=== PATIENT | female | born 1950 | race Caucasian/White ===

== ENCOUNTER 2024-05-10 20:25 | Inpatient (IN) | payer OTHER ==
[2024-05-10 21:07] LABS: HEMATOCRIT 39.4 % (32.4-45.2); HEMOGLOBIN 13.1 G/dL (10.7-15.3); MCHC 33.2 g/dl (32.0-36.0); MEAN CELL VOLUME 93.3 fl (80-96); MEAN PLT VOLUME 8.8 fl (7.5-11.1); PLATELET COUNT 180.2 10^3/uL (134-434); RBC 4.22 10^6/uL (3.60-5.2); RDW 14.2 % (11.6-15.6); WHITE BLOOD COUNT 9.6 10^3/uL (4.0-10.8)
[2024-05-10 21:18] LABS: ALBUMIN 3.9 g/dl (3.4-5.0); BILIRUBIN,TOTAL 1.3 mg/dl (0.2-1); CALCIUM 9.4 mg/dl (8.5-10.1); CREATININE 1.3 mg/dl (0.6-1.3); MAGNESIUM 1.6 mg/dL (1.8-2.4); PHOSPHOROUS 3.6 (2.5-4.9); POTASSIUM 4.7 mmol/L (3.5-5.1); TOT PROT 5.7 g/dl (6.4-8.2)
[2024-05-10 21:18] LABS: INR 1.08 (0.83-1.09); PROTHROMBIN TIME (PATIENT) 12.3 SEC (9.7-13.0)
[2024-05-10 21:21] LABS: ACTIVATED PTT 31.8 SECONDS (25.2-36.5)
[2024-05-10 21:31] LABS: VENOUS BASE EXCESS -1.6 mmol/L (-2-2); VENOUS O2 SATURATION 44.8 % (70-80); VENOUS PCO2 43.2 mmHg (38-52); VENOUS PH 7.361 (7.310-7.410)
[2024-05-10 21:58] LABS: LACTIC ACID 2.1 mmol/L (0.4-2.0)
[2024-05-10] MEDS ORDERED: ENOXAPARIN NA (PORCINE) 60 MG/0.6 ML DISP.SYRIN SQ ONE (22:46)
[2024-05-10] MEDS ORDERED: ACETAMINOPHEN INJECTION 100 ML ONE (22:46)
[2024-05-10] MEDS ORDERED: ASPIRIN 81 MG CHEWABLE TABLETS ONE (22:46)
[2024-05-10] MEDS ORDERED: dilTIAZem HCL 30 MG TABLET ONE (22:48)
[2024-05-10 22:50] LABS: HIV INTERPRETATION NEGATIVE (NEGATIVE)
[2024-05-10] MEDS: ACETAMINOPHEN 1000 MG/100 ML BAG IVPB ONE (22:54)
[2024-05-10] MEDS: ENOXAPARIN NA (PORCINE) 60 MG/0.6 ML DISP.SYRIN SQ STA (22:54)
[2024-05-10] MEDS: ASPIRIN 81 MG CHEWABLE TABLETS PO ONE (22:54)
[2024-05-10] MEDS: morphine CARPU-JECT 2 MG/1 ML DISP.SYRIN IVPUSH ONE (22:55)
[2024-05-10] MEDS: dilTIAZem HCL 30 MG TABLET PO ONE (22:56)
[2024-05-10] MEDS: dilTIAZem HCL 60 MG TABLET PO ONE (22:56)
[2024-05-11] MEDS ORDERED: AZITHROMYCIN 500 MG VIAL IVPB ONE (00:27)
[2024-05-11] MEDS: AZITHROMYCIN IVPB 500 MG in DEXTROSE 5%-WATER - 250 ML IVPB ONE (00:32)
[2024-05-11] MEDS ORDERED: cefTRIAXone SODIUM 1 GM VIAL ONE ×2 (00:36→00:39)
[2024-05-11] MEDS: MAGNESIUM CL 64 MG TABLET.SA PO STA (00:57)
[2024-05-11] MEDS: CEFTRIAXONE 1,000 MG in DEXTROSE 5%-WATER - 50 ML IVPB ONE (01:01)
[2024-05-11 01:20] LABS: LACTIC ACID 2.8 mmol/L (0.4-2.0)
[2024-05-11] MEDS: SODIUM CHLORIDE 500 ML IV STA (03:48)
[2024-05-11 05:42] LABS: POTASSIUM 4.7 mmol/L (3.5-5.1)
[2024-05-11 05:43] LABS: CALCIUM 8.1 mg/dL (8.5-10.1)
[2024-05-11 05:44] LABS: BLOOD UREA NITROGEN 22.3 mg/dL (7-18); MAGNESIUM 1.5 mg/dL (1.8-2.4)
[2024-05-11 05:47] LABS: BASO % 0.2 % (0-2.0); CREATININE 1.1 mg/dL (0.55-1.3); HEMATOCRIT 34.2 % (32.4-45.2); HEMOGLOBIN 11.1 GM/dL (10.7-15.3); LYMPH % 14.4 % (8-40); MCH 30.9 pg (25.7-33.7); MCHC 32.5 g/dl (32.0-36.0); MEAN PLT VOLUME 7.6 fl (7.5-11.1); MONO % 5.3 % (3.8-10.2); NEUT % 80.1 % (42.8-82.8); PHOSPHOROUS 3.8 mg/dL (2.5-4.9); PLATELET COUNT 138 10^3/uL (134-434); RDW 14.4 % (11.6-15.6)
[2024-05-11] MEDS: ENOXAPARIN NA (PORCINE) 60 MG/0.6 ML DISP.SYRIN SQ SCH ×2 (07:59→09:41)
[2024-05-11] MEDS: DOXYCYCLINE INJECTION 100 MG in DEXTROSE 5%-WATER 100 ML IVPB SCH (09:41)
[2024-05-11] MEDS: MAGNESIUM 2GM/50ML STERILE WATER IVPB IVPB ONE (09:42)
[2024-05-11 11:37] LABS: BILIRUBIN,DIRECT 0.8 mg/dL (0.0-0.2)
[2024-05-11] MEDS: ACETAMINOPHEN 325 MG TABLET (FP) PO PRN (14:04)
[2024-05-11] MEDS: DOCUSATE SODIUM 100 MG CAPSULE (FP) PO SCH (21:05)
[2024-05-11] MEDS: ATORVASTATIN CA 10 MG TABLET (FP) PO SCH (21:06)
[2024-05-11] MEDS ORDERED: AZITHROMYCIN IVPB 500 MG in DEXTROSE 5%-WATER - 250 ML IVPB SCH (22:00)
[2024-05-11] MEDS ORDERED: dilTIAZem HCL 125 MG/25 ML - 25 ML VIAL ONE (22:59)
[2024-05-11] MEDS: CEFTRIAXONE 1 G/50 ML PREMIX 50 ML IVPB SCH (23:05)
[2024-05-11] MEDS: dilTIAZem HCL 50 MG/10 ML - 10 ML VIAL IVPUSH PRN (23:06)
[2024-05-12] MEDS: dilTIAZem HCL 50 MG/10 ML - 10 ML VIAL IVPUSH ONE (01:50)
[2024-05-12] MEDS ORDERED: dilTIAZem HCL 25 MG/5 ML - 5 ML VIAL ONE (02:57)
[2024-05-12] MEDS ORDERED: AMIODARONE IN DEXTROSE,ISO-OSM 150 MG/100 ML BAG ONE (04:51)
[2024-05-12] MEDS: AMIODARONE IN DEXTROSE,ISO-OSM 150 MG/100 ML BAG IVPB ONE (04:55)
[2024-05-12] MEDS: AMIODARONE IN DEXTROSE,ISO-OSM 360 MG/200 ML BAG IV SCH ×2 (05:13→10:40)
[2024-05-12 07:06] LABS: HEMATOCRIT 33.5 % (32.4-45.2); HEMOGLOBIN 11.1 GM/dL (10.7-15.3); MCH 31.2 pg (25.7-33.7); MCHC 33.2 g/dl (32.0-36.0); MEAN PLT VOLUME 8.1 fl (7.5-11.1); PLATELET COUNT 145 10^3/uL (134-434); RBC 3.57 M/mm3 (3.60-5.2); RDW 14.4 % (11.6-15.6); WHITE BLOOD COUNT 8.3 K/mm3 (4.0-10.0)
[2024-05-12 07:16] LABS: POTASSIUM 4.1 mmol/L (3.5-5.1)
[2024-05-12 07:21] LABS: CALCIUM 8.5 mg/dL (8.5-10.1)
[2024-05-12 07:22] LABS: ALBUMIN 2.3 g/dl (3.4-5.0); BLOOD UREA NITROGEN 17.7 mg/dL (7-18); MAGNESIUM 1.9 mg/dL (1.8-2.4)
[2024-05-12 07:25] LABS: CREATININE 0.7 mg/dL (0.55-1.3); PHOSPHOROUS 1.5 mg/dL (2.5-4.9)
[2024-05-12 07:26] LABS: BILIRUBIN,TOTAL 0.5 mg/dL (0.2-1); TOT PROT 4.7 g/dl (6.4-8.2)
[2024-05-12] MEDS ORDERED: ENOXAPARIN NA (PORCINE) 40 MG/0.4 ML DISP.SYRIN SQ SCH (10:00)
[2024-05-12] MEDS: APIXABAN 5 MG TABLET PO SCH (10:40)
[2024-05-12] MEDS: SODIUM CHLORIDE IVPB ONE (12:14)
[2024-05-12] MEDS: SODIUM PHOSPHATE IVPB ONE (12:14)
[2024-05-13 07:41] LABS: BASO % 0.1 % (0-2.0); EOS % 0.2 % (0-4.5); HEMATOCRIT 32.2 % (32.4-45.2); HEMOGLOBIN 10.9 GM/dL (10.7-15.3); LYMPH % 10.5 % (8-40); MCH 31.5 pg (25.7-33.7); MEAN CELL VOLUME 92.9 fl (80-96); MEAN PLT VOLUME 8.1 fl (7.5-11.1); MONO % 5.9 % (3.8-10.2); NEUT % 83.3 % (42.8-82.8); PLATELET COUNT 157 10^3/uL (134-434); RBC 3.47 M/mm3 (3.60-5.2); RDW 14.6 % (11.6-15.6); WHITE BLOOD COUNT 7.7 K/mm3 (4.0-10.0)
[2024-05-13 07:44] LABS: POTASSIUM 3.9 mmol/L (3.5-5.1)
[2024-05-13 07:48] LABS: ALBUMIN 2.2 g/dl (3.4-5.0); BLOOD UREA NITROGEN 11.8 mg/dL (7-18); MAGNESIUM 1.7 mg/dL (1.8-2.4)
[2024-05-13 07:51] LABS: CALCIUM 8.4 mg/dL (8.5-10.1); CREATININE 0.6 mg/dL (0.55-1.3); PHOSPHOROUS 2.3 mg/dL (2.5-4.9)
[2024-05-13 07:53] LABS: BILIRUBIN,TOTAL 0.4 mg/dL (0.2-1); TOT PROT 4.7 g/dl (6.4-8.2)
[2024-05-13] MEDS: METOPROLOL TARTRATE 5 MG/5 ML VIAL IVPUSH PRN (08:15)
[2024-05-13] MEDS: MAGNESIUM 2GM/50ML STERILE WATER IVPB IVPB ONE (09:00)
[2024-05-13] MEDS: NAPH,MB-DB/K PH,MBDB POWDER PACKET PO SCH (09:00)
[2024-05-13] MEDS: AMIODARONE IN DEXTROSE,ISO-OSM 360 MG/200 ML BAG IV SCH (09:05)
[2024-05-13] MEDS: POTASSIUM PHOSPHATE 30 MM in SODIUM CHLORIDE 500 ML IVPB ONE (12:03)
[2024-05-14 07:03] LABS: HEMATOCRIT 36.1 % (32.4-45.2); HEMOGLOBIN 11.8 GM/dL (10.7-15.3); MCH 30.9 pg (25.7-33.7); MCHC 32.7 g/dl (32.0-36.0); MEAN CELL VOLUME 94.4 fl (80-96); MEAN PLT VOLUME 8.6 fl (7.5-11.1); PLATELET COUNT 191 10^3/uL (134-434); RBC 3.82 M/mm3 (3.60-5.2); RDW 14.4 % (11.6-15.6)
[2024-05-14 07:15] LABS: POTASSIUM 4.5 mmol/L (3.5-5.1)
[2024-05-14 07:18] LABS: ALBUMIN 2.5 g/dl (3.4-5.0); CALCIUM 8.9 mg/dL (8.5-10.1)
[2024-05-14 07:19] LABS: BLOOD UREA NITROGEN 8.3 mg/dL (7-18); MAGNESIUM 1.9 mg/dL (1.8-2.4)
[2024-05-14 07:23] LABS: BILIRUBIN,TOTAL 0.3 mg/dL (0.2-1)
[2024-05-14 07:25] LABS: CREATININE 0.6 mg/dL (0.55-1.3); PHOSPHOROUS 2.6 mg/dL (2.5-4.9)
[2024-05-14 09:35] LABS: ANISOCYTOSIS 1+; MACROCYTOSIS 1+
[2024-05-14] MEDS: AMIODARONE HCL 200 MG TABLET PO SCH (14:42)
[2024-05-14] MEDS: metoPROLOL SUCCINATE 25 MG TAB.SR.24H (FP) PO SCH (16:25)
[2024-05-15 07:33] LABS: HEMATOCRIT 34.8 % (32.4-45.2); HEMOGLOBIN 12.2 GM/dL (10.7-15.3); MCH 32.2 pg (25.7-33.7); MEAN CELL VOLUME 91.9 fl (80-96); MEAN PLT VOLUME 7.8 fl (7.5-11.1); PLATELET COUNT 224 10^3/uL (134-434); RBC 3.79 M/mm3 (3.60-5.2); RDW 14.1 % (11.6-15.6); WHITE BLOOD COUNT 5.1 K/mm3 (4.0-10.0)
[2024-05-15] MEDS ORDERED: metoPROLOL SUCCINATE 25 MG TAB.SR.24H (FP) PO SCH (07:45)
[2024-05-15 07:55] LABS: POTASSIUM 4.1 mmol/L (3.5-5.1)
[2024-05-15 08:04] LABS: BLOOD UREA NITROGEN 8.2 mg/dL (7-18); CALCIUM 8.6 mg/dL (8.5-10.1)
[2024-05-15 08:05] LABS: ALBUMIN 2.4 g/dl (3.4-5.0); MAGNESIUM 1.6 mg/dL (1.8-2.4)
[2024-05-15 08:08] LABS: CREATININE 0.6 mg/dL (0.55-1.3); PHOSPHOROUS 2.8 mg/dL (2.5-4.9)
[2024-05-15 08:09] LABS: BILIRUBIN,TOTAL 0.6 mg/dL (0.2-1); TOT PROT 5.2 g/dl (6.4-8.2)
[2024-05-15] MEDS: metoPROLOL SUCCINATE 25 MG TAB.SR.24H (FP) PO SCH (09:23)
[2024-05-15] MEDS: MAGNESIUM 1GM/D5W - 1 GM/100 ML IVPB IVPB ONE (21:35)
[2024-05-16 08:15] LABS: POTASSIUM 5.2 mmol/L (3.5-5.1)
[2024-05-16 08:18] LABS: HEMATOCRIT 35.9 % (32.4-45.2); HEMOGLOBIN 12.2 GM/dL (10.7-15.3); MCH 31.3 pg (25.7-33.7); MEAN CELL VOLUME 92.2 fl (80-96); MEAN PLT VOLUME 7.6 fl (7.5-11.1); PLATELET COUNT 285 10^3/uL (134-434); RDW 14.3 % (11.6-15.6); WHITE BLOOD COUNT 4.8 K/mm3 (4.0-10.0)
[2024-05-16 08:20] LABS: ALBUMIN 2.4 g/dl (3.4-5.0); BLOOD UREA NITROGEN 8.6 mg/dL (7-18); CALCIUM 9.1 mg/dL (8.5-10.1); MAGNESIUM 1.9 mg/dL (1.8-2.4)
[2024-05-16 08:23] LABS: CREATININE 0.6 mg/dL (0.55-1.3); PHOSPHOROUS 3.3 mg/dL (2.5-4.9)
[2024-05-16 08:24] LABS: BILIRUBIN,TOTAL 0.4 mg/dL (0.2-1)
[2024-05-16 08:25] LABS: TOT PROT 5.2 g/dl (6.4-8.2)
[2024-05-16] MEDS ORDERED: metoPROLOL SUCCINATE 25 MG TAB.SR.24H (FP) PO SCH (08:59)
[2024-05-16] MEDS: metoPROLOL SUCCINATE 25 MG TAB.SR.24H (FP) PO ONE (09:41)
[2024-05-16] MEDS: SODIUM ZIRCONIUM CYCLOSILICATE (LOKELMA) 5 GM PACKET PO ONE (13:48)
[2024-05-16] MEDS: metoPROLOL SUCCINATE 25 MG TAB.SR.24H (FP) PO SCH (22:06)
[2024-05-17 06:56] LABS: POTASSIUM 4.6 mmol/L (3.5-5.1)
[2024-05-17 07:04] LABS: BLOOD UREA NITROGEN 11.6 mg/dL (7-18); CALCIUM 9.3 mg/dL (8.5-10.1)
[2024-05-17 07:05] LABS: ALBUMIN 2.7 g/dl (3.4-5.0); MAGNESIUM 1.8 mg/dL (1.8-2.4)
[2024-05-17 07:07] LABS: BILIRUBIN,DIRECT 0.2 mg/dL (0.0-0.2); CREATININE 0.7 mg/dL (0.55-1.3); PHOSPHOROUS 3.4 mg/dL (2.5-4.9)
[2024-05-17 07:09] LABS: BILIRUBIN,TOTAL 0.4 mg/dL (0.2-1); TOT PROT 5.6 g/dl (6.4-8.2)
[2024-05-17 18:19] VITALS: BP 141/75; PULSE 69; RESP 19; TEMP 97.8
== END 2024-05-17 19:37 | disposition home or self-care (01) | DRG 871 ==
LOC: FER 20:25 → J2W 05-11 03:00
PROVIDERS: ADMIT Internal Medicine; ATTEND Internal Medicine
DX: A41.9 Sepsis, unspecified organism (principal); I21.A1 Myocardial infarction type 2; J11.00 Influenza due to unidentified influenza virus with unspecified type of pneumonia; R04.2 Hemoptysis; J90 Pleural effusion, not elsewhere classified; E78.5 Hyperlipidemia, unspecified; E83.42 Hypomagnesemia; I48.0 Paroxysmal atrial fibrillation
CPT/HCPCS: 0241U-QW; 36415; 71045-TC-FY; 71046-TC-FY; 71250-TC; 80048; 80053; 80076; 81003; 81015; 82248; 82550; 82803; 82962; 83605; 83735; 84100; 84443; 84484; 85025; 85027; 85610; 85730; 86803; 87070; 87086; 87205; 87389; 87481; 87899; 93005; 93010; 93306-TC; 93922; 93925-TC; 93970-TC; 97116-GP; 97161-GP; 99291; J0131; J0282